=== PATIENT | female | born 1950 | race Caucasian/White ===

== ENCOUNTER 2017-06-03 12:28 | Observation (INO) ==
[2017-06-03] MEDS ORDERED: ACETAMINOPHEN 325 MG TABLET PO PRN (12:48)
[2017-06-03] MEDS ORDERED: ONDANSETRON 4 MG/2 ML VIAL IV PRN (12:48)
[2017-06-03] MEDS: DEXTROSE 5% NACL 0.45% 1,000 ML IV SCH ×2 (14:11→21:39)
[2017-06-03 14:33] LABS: ABG Base Excess -1.1 MMOL/L (-2.5-2.5); ABG HCO3 24.5 MMOL/L (20-26); ABG Oxygen Saturation 93.7 % (95-100); ABG PCO2 44.4 MM HG (35-48); ABG PO2 72.6 MM HG (80-95); ABG TCO2 25.9 MMOL/L (23-27)
[2017-06-03 14:34] LABS: Basophils % 0.2 % (0.0-0.8); Hematocrit 34.4 VOL% (35.7-47.0); Hemoglobin 11.6 GM/DL (12.0-16.0); Immature Granulocytes % 0.3 %; Immature Granulocytes Absolute 0.04 #; Lymphocytes # 0.8 10*3/uL (1.4-4.0); Lymphocytes % 6.3 % (21.3-54.2); Mean Corpuscular HGB Conc 33.7 GM/DL (32-36); Mean Corpuscular Hemoglobin 31 PG (27-34); Mean Corpuscular Volume 90.8 FL (87-102); Mean Platelet Volume 9.5 FL (9.6-12.0); Monocytes # 0.1 10*3/uL (0.11-0.8); Monocytes % 0.6 % (1.7-12.7); Neutrophils # 11.6 10*3/uL (1.4-7.4); Neutrophils % 92.6 % (38.7-73.9); Platelet Count 367 T/CUMM (130-400); Red Blood Count 3.79 MC/CUMM (3.8-5.5); Red Cell Distribution Width 13.2 % (9.3-17.3); White Blood Count 12.5 T/CUMM (4-12)
[2017-06-03 15:11] LABS: Alanine Aminotransferase 69 U/L (13-56); Albumin 3.6 G/DL (3.4-5.0); Alkaline Phosphatase 174 U/L (45-117); Aspartate Amino Transferase 91 U/L (0-37); Bilirubin,Total < 0.39 MG/DL (0.2-1.0); Blood Urea Nitrogen 18 MG/DL (7-18); Calcium 9.2 MG/DL (8.5-10.1); Glucose 142 MG/DL (74-106); Magnesium 1.8 MG/DL (1.8-2.4); Osmolality,Calculated 273.1 MOS/KG (273-304); Potassium 3.7 MMOL/L (3.5-5.1); Sodium 135 MMOL/L (136-145); Total Protein 6.6 G/DL (6.4-8.3)
[2017-06-03 15:17] LABS: Lymphocytes 10 % (20-55); Segmented Neutrophils 90 % (50-85); Total Cells Counted 100
[2017-06-03 15:18] LABS: Platelet Estimate Normal
[2017-06-04 03:29] LABS: ABG Base Excess 2.6 MMOL/L (-2.5-2.5); ABG HCO3 26.6 MMOL/L (20-26); ABG Oxygen Saturation 92.8 % (95-100); ABG PCO2 44.1 MM HG (35-48); ABG PH 7.406 (7.35-7.45); ABG PO2 65.6 MM HG (80-95); ABG TCO2 24.8 MMOL/L (23-27)
[2017-06-04] MEDS ORDERED: PANTOPRAZOLE 40 MG TABLET PO SCH (09:00)
[2017-06-04] MEDS: DEXTROSE 5% NACL 0.45% 1,000 ML IV SCH (09:03)
[2017-06-04 11:02] VITALS: BP 155/68
== END 2017-06-04 12:25 | disposition home or self-care (01) ==
LOC: INTOOBSV 13:25 → N.ICU 13:25
PROVIDERS: ADMIT Surgery; ATTEND Surgery

== ENCOUNTER 2018-12-26 23:07 | Inpatient (IN) ==
[2018-12-27 00:37] LABS: Apearance,Urine CLEAR (Clear); Bilirubin,Urine Negative (Negative); Blood, Urine Negative (Negative); Glucose,Urine (UA) 150 mg/dL (Negative); Hyaline Casts,Urine 1 /LPF (0-3); Ketones,Urine Negative (Negative); Mucus,Urine Occasional /LPF (Occasional); Nitrite,Urine Negative (Negative); Protein,Urine 30 MG/DL; Squamous Epithelial Cell,Urine Occasional /HPF (0-10); Urine Color Yellow (Yellow); Urine Specific Gravity 1.009 (1.001-1.035); Urine Urobilinogen < 2.0 EU/DL (0.2-1.0); WBC,Urine 3 /HPF (0-6)
[2018-12-27 00:38] LABS: Basophils # 0.1 10*3/uL (0.0-0.2); Basophils % 0.2 % (0.0-0.8); Eosinophils % 0.1 % (0.00-10.9); Hematocrit 38.8 VOL% (35.7-47.0); Hemoglobin 13.2 GM/DL (12.0-16.0); Immature Granulocytes Absolute 0.21 #; Lymphocytes # 1.5 10*3/uL (1.4-4.0); Lymphocytes % 7.3 % (21.3-54.2); Mean Corpuscular Volume 91.1 FL (87-102); Mean Platelet Volume 9.2 FL (9.6-12.0); Monocytes % 7.2 % (1.7-12.7); Neutrophils % 84.2 % (38.7-73.9); Platelet Count 505 T/CUMM (130-400); Red Blood Count 4.26 MC/CUMM (3.8-5.5); Red Cell Distribution Width 14.4 % (9.3-17.3)
[2018-12-27] MEDS ORDERED: SODIUM CHLORIDE 0.9% 500 ML IV STA (00:44)
[2018-12-27 00:53] LABS: Albumin 4.3 G/DL (3.4-5.0); Bilirubin,Total 0.6 MG/DL (0.2-1.0); Calcium 10.2 MG/DL (8.5-10.1); Osmolality,Calculated 247.9 MOS/KG (273-304); Total Protein 7.7 G/DL (6.4-8.3)
[2018-12-27 01:22] LABS: Lymphocytes 9 % (20-55); Segmented Neutrophils 82 % (50-85); Total Cells Counted 100
[2018-12-27 01:23] LABS: Anisocytosis 1+; Microcytosis 1+
[2018-12-27 01:25] LABS: Platelet Estimate Increased
[2018-12-27] MEDS ORDERED: MAGNESIUM SULF RIDER 4 GM in PREMIX 1 EACH IV PRN (05:49)
[2018-12-27] MEDS ORDERED: MAGNESIUM SULF RIDER 2 GM in PREMIX 1 EACH IV PRN (05:49)
[2018-12-27] MEDS ORDERED: DICLOFENAC 1% GEL 100 GM TUBE TOP PRN (05:49)
[2018-12-27] MEDS ORDERED: ONDANSETRON 4 MG/2 ML VIAL IV PRN (05:49)
[2018-12-27] MEDS: CIPROFLOXACIN INJ 400 MG in PREMIX 1 EACH IV SCH (06:46)
[2018-12-27] MEDS: SODIUM CHLORIDE 0.9% 1,000 ML IV SCH ×4 (06:46→23:21)
[2018-12-27] MEDS: ENOXAPARIN 30 MG/0.3 ML SYRINGE SUBCUT SCH (06:58)
[2018-12-27] MEDS ORDERED: metroNIDAZOLE INJ 500 MG in PREMIX 1 EACH IV SCH (07:00)
[2018-12-27 07:16] LABS: Thyroid Stimulating Hormone 0.262 uIU/ml (0.358-3.74)
[2018-12-27 10:12] LABS: Free T4 (Free Thyroxine) 1.62 NG/DL (0.76-1.46)
[2018-12-27] MEDS: FOLIC ACID 1 MG TABLET PO SCH (10:18)
[2018-12-27] MEDS: ASPIRIN EC 81 MG TABLET PO SCH (10:18)
[2018-12-27] MEDS: predniSONE 5 MG TABLET PO SCH (10:18)
[2018-12-27] MEDS: ESCITALOPRAM 10 MG TABLET PO SCH (10:18)
[2018-12-27] MEDS: ACETAMINOPHEN 325 MG TABLET PO PRN (16:34)
[2018-12-27] MEDS: POTASSIUM CHLORIDE 20 MEQ TABLET PO PRN ×3 (16:35→22:27)
[2018-12-27] MEDS: FAMOTIDINE 20 MG TABLET PO SCH (22:27)
[2018-12-28] MEDS: CIPROFLOXACIN INJ 400 MG in PREMIX 1 EACH IV SCH ×2 (01:42→17:39)
[2018-12-28] MEDS: ENOXAPARIN 30 MG/0.3 ML SYRINGE SUBCUT SCH (06:13)
[2018-12-28] MEDS: SODIUM CHLORIDE 0.9% 1,000 ML IV SCH ×2 (06:13→14:35)
[2018-12-28 06:24] LABS: Basophils % 0.2 % (0.0-0.8); Eosinophils % 0.1 % (0.00-10.9); Hematocrit 29.6 VOL% (35.7-47.0); Hemoglobin 10.1 GM/DL (12.0-16.0); Immature Granulocytes % 1.2 %; Immature Granulocytes Absolute 0.14 #; Lymphocytes # 1.6 10*3/uL (1.4-4.0); Lymphocytes % 14.2 % (21.3-54.2); Mean Corpuscular HGB Conc 34.1 GM/DL (32-36); Mean Corpuscular Volume 92.2 FL (87-102); Mean Platelet Volume 9.6 FL (9.6-12.0); Monocytes % 7.2 % (1.7-12.7); Neutrophils % 77.1 % (38.7-73.9); Platelet Count 419 T/CUMM (130-400); Red Blood Count 3.21 MC/CUMM (3.8-5.5); Red Cell Distribution Width 14.5 % (9.3-17.3); White Blood Count 11.3 T/CUMM (4-12)
[2018-12-28 06:40] LABS: Calcium 8.8 MG/DL (8.5-10.1); Osmolality,Calculated 268.1 MOS/KG (273-304)
[2018-12-28] MEDS: predniSONE 5 MG TABLET PO SCH (08:32)
[2018-12-28] MEDS: FOLIC ACID 1 MG TABLET PO SCH (08:32)
[2018-12-28] MEDS: ASPIRIN EC 81 MG TABLET PO SCH (08:32)
[2018-12-28] MEDS: ESCITALOPRAM 10 MG TABLET PO SCH (08:32)
[2018-12-28] MEDS: ACETAMINOPHEN 325 MG TABLET PO PRN (14:46)
[2018-12-28] MEDS: FAMOTIDINE 20 MG TABLET PO SCH (20:18)
[2018-12-29] MEDS: ACETAMINOPHEN 325 MG TABLET PO PRN (00:19)
[2018-12-29 05:11] LABS: Basophils % 0.4 % (0.0-0.8); Eosinophils % 0.1 % (0.00-10.9); Hematocrit 29.6 VOL% (35.7-47.0); Hemoglobin 10.1 GM/DL (12.0-16.0); Immature Granulocytes % 0.4 %; Immature Granulocytes Absolute 0.04 #; Lymphocytes # 1.9 10*3/uL (1.4-4.0); Lymphocytes % 18.8 % (21.3-54.2); Mean Corpuscular HGB Conc 34.1 GM/DL (32-36); Mean Corpuscular Volume 92.2 FL (87-102); Mean Platelet Volume 9.1 FL (9.6-12.0); Monocytes % 6.8 % (1.7-12.7); Neutrophils % 73.5 % (38.7-73.9); Platelet Count 390 T/CUMM (130-400); Red Blood Count 3.21 MC/CUMM (3.8-5.5); Red Cell Distribution Width 14.5 % (9.3-17.3); White Blood Count 9.8 T/CUMM (4-12)
[2018-12-29] MEDS: ENOXAPARIN 30 MG/0.3 ML SYRINGE SUBCUT SCH (05:23)
[2018-12-29 05:42] LABS: Calcium 8.9 MG/DL (8.5-10.1); Osmolality,Calculated 270.8 MOS/KG (273-304)
[2018-12-29] MEDS: ASPIRIN EC 81 MG TABLET PO SCH (08:06)
[2018-12-29] MEDS: ESCITALOPRAM 10 MG TABLET PO SCH (08:06)
[2018-12-29] MEDS: predniSONE 5 MG TABLET PO SCH (08:07)
[2018-12-29] MEDS: FOLIC ACID 1 MG TABLET PO SCH (08:07)
[2018-12-29] MEDS: LISINOPRIL 20 MG TABLET PO SCH (08:07)
[2018-12-29] MEDS: CIPROFLOXACIN INJ 400 MG in PREMIX 1 EACH IV SCH ×2 (09:51→21:31)
[2018-12-29] MEDS: FAMOTIDINE 20 MG TABLET PO SCH (21:32)
[2018-12-29] MEDS ORDERED: tiZANidine 4 MG TABLET PO ONE (23:52)
[2018-12-29] MEDS ORDERED: clonazePAM 0.5 MG TABLET PO ONE (23:56)
[2018-12-30] MEDS: ACETAMINOPHEN 325 MG TABLET PO PRN ×2 (00:35→14:47)
[2018-12-30 05:00] LABS: Basophils # 0.1 10*3/uL (0.0-0.2); Basophils % 0.5 % (0.0-0.8); Eosinophils # 0.1 10*3/uL (0.0-0.87); Eosinophils % 0.5 % (0.00-10.9); Hematocrit 30.4 VOL% (35.7-47.0); Immature Granulocytes % 0.4 %; Immature Granulocytes Absolute 0.05 #; Lymphocytes # 3.1 10*3/uL (1.4-4.0); Lymphocytes % 27.3 % (21.3-54.2); Mean Corpuscular HGB Conc 32.9 GM/DL (32-36); Mean Platelet Volume 9.2 FL (9.6-12.0); Monocytes % 6.2 % (1.7-12.7); Neutrophils % 65.1 % (38.7-73.9); Platelet Count 380 T/CUMM (130-400); Red Cell Distribution Width 14.5 % (9.3-17.3); White Blood Count 11.3 T/CUMM (4-12)
[2018-12-30 05:33] LABS: Calcium 9.2 MG/DL (8.5-10.1); Osmolality,Calculated 271.1 MOS/KG (273-304)
[2018-12-30] MEDS: ENOXAPARIN 30 MG/0.3 ML SYRINGE SUBCUT SCH (06:35)
[2018-12-30] MEDS: ASPIRIN EC 81 MG TABLET PO SCH (08:57)
[2018-12-30] MEDS: FOLIC ACID 1 MG TABLET PO SCH (08:57)
[2018-12-30] MEDS: CIPROFLOXACIN INJ 400 MG in PREMIX 1 EACH IV SCH (08:57)
[2018-12-30] MEDS: LISINOPRIL 20 MG TABLET PO SCH (08:57)
[2018-12-30] MEDS: ESCITALOPRAM 10 MG TABLET PO SCH (08:57)
[2018-12-30] MEDS: predniSONE 5 MG TABLET PO SCH (08:58)
[2018-12-30 16:50] VITALS: BP 127/68
[2018-12-31] MEDS ORDERED: METHOTREXATE 2.5 MG TABLET PO SCH (09:00)
== END 2018-12-30 15:45 | disposition swing bed (61) | DRG 683 ==
LOC: EDBD → EDUNIT# → N.EDINP 23:07 → N.ED 23:07 → N.5E 12-27 05:44
PROVIDERS: ADMIT Internal Medicine; ATTEND Internal Medicine